=== PATIENT | male | born 1960 | race Caucasian/White ===

== ENCOUNTER 2025-03-23 08:51 | Outpatient (AMB) | payer MEDICAID, SELFPAY ==
--- NOTE | 2025-03-23 09:02 | PD.ORTHCLVIS ---
Vital signs 03/23/25 09:03 Height 1.85 m Height Method Stated Weight 99.535 kg Weight Measurement Method Standing Scale BMI 28.9 BP 163/134 H Blood Pressure Source Automatic Cuff Blood Pressure Location Left Upper Arm Position Sitting Respiration 19 Pulse 66 Pulse Source Monitor Temp 97.6 F Temp Source Temporal Artery Scan Pulse Oximetry (%) 99 Oxygen Delivery Method Room Air Med/Allergies Allergies & Medications Allergies No Known Allergies Allergy (Verified 03/23/25 09:03) Medication Reconciliation ibuprofen 800 mg tablet 800 mg PO Q8H 03/23/25 [History Confirmed 03/23/25] meloxicam 7.5 mg tablet 7.5 mg PO QDAY #45 tabs 03/23/25 [Rx] methylprednisolone 4 mg tablets in a dose pack (Medrol (Tyler)) See Rx Instructions PO PER PKG DIR #21 tabs 03/23/25 [Rx] Exam Exam Patient is in no acute distress and is cooperative with the examination today. Breathing is nonlabored. In no respiratory distress. Patient has no paraspinal tenderness. The gait of the patient is nonantalgic Bilateral extremities were evaluated and demonstrates sensation intact to light touch. Palpable pedal pulses are present. No significant edema is present. Bilateral knees were examined and the patient has full strength and range of motion.. The right hip was examined. Patient was able to flex to 90 degrees, adduct to 30 degrees, abduct to 40 degrees, internally rotate to 20 degrees, and externally rotate to 20 degrees. Patient has a negative logroll. Stinchfield is negative. The patient is nontender diffusely to touch. The left hip was examined. Patient was able to flex to 90 degrees, adduct to 30 degrees, abduct to 40 degrees, internally rotate to 10 degrees, and externally rotate to 20 degrees. Patient has a positive logroll and Stinchfield X-rays of the left hip and MRI of the left hip from [place] [facility] demonstrate significant joint space narrowing and complete obliteration of the femoral acetabular joint space. There is significant degenerative changes on the MRI as well Assessment and Plan Problem List (1) Arthritis of left hip: Status: Acute Plan: Patient is a 64-year-old male with significant left hip arthritis as well as symptoms of spinal stenosis. We discussed that I would like to get an MRI to better evaluate the spinal stenosis. We will probably end up doing a total hip replacement at some point as he has significant arthritis and complete joint space narrowing. He has difficulty putting on socks and shoes. However, he also has significant sciatica type symptoms. I would like to do a few things. I will order an x-rays of his hip and spine and knee as he is having significant symptoms. In addition, I will order a diagnostic and therapeutic hip injection with cortisone. I would like to see him back after his injection is done to see how much of the pain is coming from the hip versus spine. (2) Spinal stenosis: Status: Acute Plan DMV DISABLED PERSON PLACARD forms was given to me and was filled out for patient expires 09/23/2025 Office Procedures GNS Level of Care Nursing/Assessment Patient Status: Initial/New Patient Nursing Assessment/Reassesment: Medication Reconciliation, Update PMH in EMR and Vital Signs Coordination of Care: Complex Care and Chronic Disease 1-5, Education Complex Pt/Fam, Consent,records obtained, informed consent, 1 Ins Authorization, Lab and Imaging orders, Results/Orders obtained and Staff clarify orders New Patient Charge New Patient Point Assignment: 1124 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 ([id number]) MA Intake Visit Data Collection New Patient or Established: New Patient (never been to [facility]) Reason for Visit:: LEFT HIP PAIN Seen by Clinical Staff ONLY (RN/MA): No PCP or OBGYN visit in last 3 months: Yes Hx Now: No Do You Feel Safe at Home: Yes Authorities Contacted: N/A Questionairres Past Medical History Past Medical History Have you ever been diagnosed with any of the following: Neurological Problems Cerebrovascular Accident (CVA): No Transient Ischemic Attacks (TIA): No Dementia: No Alzheimer's Disease: No Parkinson's Disease: No Brain Tumor: No Meningitis: No Seizures: No Epilepsy: No Multiple Sclerosis: No Cerebral Palsy: No Amyotrophic Lateral Sclerosis (ALS/Valencia Gehrig's): No Guillain-[place] Syndrome: No Spina Bifida: No Paralysis: No Peripheral Neuropathy: No Esparza's Palsy: No Subdural Hematoma: No Migraine: No Head Trauma: No Spinal Cord Injury: No Traumatic Brain Injury: No Respiratory Problems Smoking: Yes (MARIJUANA) Subjective Visit Visit for: new patient, hip (LEFT) and MRI (RESULTS) Immunization / Flu Flu Vaccine in the Last 12 Months: No Flu Vaccine Exclusion Criteria: No Exclusion Criteria History of Present Illness Chief complaint: LEFT HIP PAIN Date of injury / onset of symptoms: 4 YEARS Patient is a 64-year-old male with a longstanding history of back and hip issues. He has a history of sciatica. He has not seen anyone recently. He also has significant pain on his side and buttocks. He was told he had significant arthritis in his left hip. He is significant difficulty putting on socks and shoes on the left. The patient has significant difficulty sitting down or lying down. He prefers to be standing up because of the pain. He has constant pain on groin area when still for too long. He has a positive shopping cart sign Personal History Occupation: RETIRED Hobbies: USED TO PLAY SPORTS Pain Pain level (0-10): 10 Pain duration: WHEN SITTING Pain location: groin, inside (medial), outside (lateral), anterior and other (specify) (CONSTANT GROIN PAIN WHEN STILL FOR TOO LONG) Pain quality: sharp, dull and aching Pain timing: night, increases with activity, stairs and other (specify) Ambulatory data Ambulatory device: none Treatments Number of previous injections: 0 Improvement with previous injections: No Number of Physical Therapy sessions: 0 Improvement with PT: No Improvement with NSAIDS: no (IBUPROFEN) Review of Systems Review of Systems: All systems negative unless otherwise noted in HPI.
[2025-03-23 09:03] VITALS: BP 163/134; PULSE 66; RESP 19; TEMP 36.4; O2SAT 99; BMI 28.9
--- NOTE | 2025-03-23 09:14 | XR_ITS ---
Examination: Lumbar spine 3 views Technique one AP lateral coned lateral lower lumbar spine 3 views Date and time: March 23, 2025 0945 hours INDICATIONS: Lower back pain 20 years FINDINGS: Adequate alignment lumbar vertebral bodies on the lateral view. No lumbar fracture. Moderate lumbar spondylosis. Diffuse lumbar disc narrowing, advanced L4-L5, L5-S1 IMPRESSION: Advanced degenerative disc disease L4-L5, L5-S1
--- NOTE | 2025-03-23 09:15 | XR_ITS ---
Examination: Bilateral knees single view Left knee PA lateral axial 3 views TECHNIQUE: Bilateral AP knees standing single view Left knee PA standing flexion, standing lateral, axial left knee 3 views total 4 views Date and time: March 23, 2025 0932 hours INDICATIONS: Left knee pain one year. FINDINGS: Mild to moderate narrowing medial joint space right knee Moderate to advanced narrowing medial joint space left knee Mild osteoarthritis left patellofemoral joint No fracture IMPRESSION: Moderate to advanced narrowing medial joint space left knee
--- NOTE | 2025-03-23 09:15 | XR_ITS ---
Examination:Left hip AP, lateral, AP pelvis 3 views Technique: Hip AP lateral, AP pelvis, 3 views Exam date and time:March 23, 2025 0932 hours INDICATIONS: Left hip pain beginning one year ago. FINDINGS: Severe left hip osteoarthritis, severe joint space narrowing [id number] No acute fracture Sclerosis involving the femoral head, clinical correlation advised Moderate narrowing right hip joint IMPRESSION: Severe left hip osteoarthritis.
== END 2025-03-23 09:24 | disposition home or self-care (01) ==
LOC: HODSRG 08:51
PROVIDERS: PCP Physician Assistant; Referring Provider Physician Assistant; Supervising Provider Orthopaedic Surgery Adult Reconstructive Orthopaedic Surgery; Visit Provider Orthopaedic Surgery Adult Reconstructive Orthopaedic Surgery
DX: M16.12 Unilateral primary osteoarthritis, left hip (principal); M51.369 Other intervertebral disc degeneration, lumbar region without mention of lumbar back pain or lower extremity pain; M25.862 Other specified joint disorders, left knee
CPT/HCPCS: 72100; 73502; 73564; 99204; G0463

== ENCOUNTER → 2025-04-05 | Outpatient (CLI) | payer MEDICAID, SELFPAY ==
--- NOTE | 2025-04-05 13:00 | XR_ITS ---
Examination: Steroid injection left hip joint with imaging guidance Fluoroscopy AP left hip 2 views INDICATIONS: Diagnosis unilateral primary osteoarthritis left hip, left hip pain years. Exam date and time: April 05, 2025 1303 hours Informed consent provided. Technique: A timeout was completed verifying correct patient, procedure, site, positioning. The patient was placed in supine position appropriate for the steroid injection The patient's site was prepped and draped in sterile fashion 5 cc 1% lidocaine administered locally for anesthesia. Sterile drape applied, maximum barrier sterile technique. Utilizing fluoroscopic guidance, 23-gauge needle placed in the left hip joint 1 cc Kenalog 40 in 5 cc 0.25% Marcaine introduced into the left hip joint The patient was in satisfactory and stable condition on completion of the procedure Attending radiologist was present for the entire procedure Estimated blood loss 0 cc. Impression: Successful steroid injection left hip joint with imaging guidance Fluoroscopy 0.1 minute radiation dose 2.02 milligray 2 spot fluoroscopic abdomen films .
[2025-04-05] MEDS: BUPIVACAINE MPF 0.25% 30 ML VIAL EPID (13:45)
[2025-04-05] MEDS: TRIAMCINOLONE ACET INJ 40 MG/ML VIAL IM (14:10)
== END | disposition home or self-care (01) ==
LOC: SIRX 12:41
PROVIDERS: PCP Family Medicine; Referring Provider Orthopaedic Surgery Adult Reconstructive Orthopaedic Surgery; Visit Provider Orthopaedic Surgery Adult Reconstructive Orthopaedic Surgery
DX: M16.12 Unilateral primary osteoarthritis, left hip (principal); M48.00 Spinal stenosis, site unspecified
CPT/HCPCS: 20610; 77002; J3301; J3490; J0665

== ENCOUNTER → 2025-04-25 | Outpatient (CLI) | payer MEDICAID, SELFPAY ==
--- NOTE | 2025-04-25 11:00 | XR_ITS ---
Examination: CT lumbar spine, without contrast. 2-D sagittal reconstructions. 2-D coronal reconstructions. 3-D reconstructions. Date and time of exam:April 25, 2025 1117 hours INDICATIONS: Lower back pain 15 years CTDI: vol (mGy):31.8 DLP: (mGycm):1029 Technique: Multiple 1.25 mm axial sections of the lumbar spine without intravenous contrast have been obtained. 2-D sagittal and coronal reconstructions have been obtained. 3-D reconstructions have been obtained. Low dose protocols were performed. One or more of the following dose reduction techniques were used; automated exposure control, adjustment of the mA and/or KV according to patient size, use of iterative reconstruction technique. Findings: Prominent osteopenia. Satisfactory alignment lumbar vertebral bodies on the lateral view. No lumbar fracture. Mild lumbar spondylosis. Moderate disc narrowing L4-L5, advanced disc narrowing L5-S1 No spondylolisthesis Lumbar pedicles, laminae, transverse and posterior spinous processes are intact L5-S1 3 mm central lumbar disc bulge with moderate left neural foraminal stenosis and mild left L5 ganglionic compression L4-L5 4.5 mm central lumbar disc bulge L3-L4 no disc protrusion L2-L3 no disc protrusion L1-L2 no disc protrusion IMPRESSION: Moderate degenerative disc disease L4-L5 Advanced degenerative disc disease L5-S1 L5-S1 3 mm central lumbar disc bulge, moderate left neural foraminal stenosis, mild left L5 ganglionic compression L4-L5 4.5 mm central lumbar disc bulge
== END | disposition home or self-care (01) ==
PROVIDERS: PCP Orthopaedic Surgery Adult Reconstructive Orthopaedic Surgery; Referring Provider Orthopaedic Surgery Adult Reconstructive Orthopaedic Surgery; Visit Provider Orthopaedic Surgery Adult Reconstructive Orthopaedic Surgery
DX: M51.360 Other intervertebral disc degeneration, lumbar region with discogenic back pain only (principal); M51.370 Other intervertebral disc degeneration, lumbosacral region with discogenic back pain only; M48.07 Spinal stenosis, lumbosacral region; G95.20 Unspecified cord compression
CPT/HCPCS: 72131

== ENCOUNTER → 2025-04-26 | Outpatient (CLI) | payer MEDICAID, SELFPAY ==
--- NOTE | 2025-04-26 17:00 | XR_ITS ---
Examination: MRI left hip without intravenous contrast. Date and time of exam: April 26, 2025, 1926 hrs. Indications: Left hip pain beginning 40 years ago, worse the last year Technique: Multiple MRI images of the left hip have been obtained T1 weighted coronal sections, TR 500, TE 12 Proton density coronal fat saturated images, TR 3000, TE 71 T2-weighted coronal images, 5850, TE 104 T1-weighted axial images, TR 521, TE 12 T2-weighted axial fat suppressed images, TR 5730, TE 103. Findings: Advanced left hip osteoarthritis, marked joint space narrowing Serpiginous abnormal signal in the femoral head on the left, avascular necrosis Moderate to severe narrowing right hip joint, no avascular necrosis Bones of the pelvis intact Mild prostatomegaly Urinary bladder intact Fraying and irregularity anterior superior left hip labral margins Impression: Advanced left hip osteoarthritis Avascular necrosis left femoral head Fraying and irregularity anterior superior left hip labral margins
--- NOTE | 2025-04-26 17:00 | XR_ITS ---
Examination: MRI lumbar spine without contrast Date and time of exam: April 26, 2025, 1806 hrs. Indications: Low back pain radiating to the left hip beginning one year ago Technique: Multiple MRI axial and sagittal sections lumbar spine. Sagittal T2-weighted images, TR 3500, TE 118 T1 weighted transverse sections, TR 688 T8.5, T2-weighted sagittal sections T1 weighted sagittal sections TR 621, TE 30 T2 axial sections, TR 4, 190, TE 84. Findings: Adequate alignment lumbar vertebral bodies No lumbar fractures. Moderate to advanced disc narrowing L4-L5, L5-S1 Diffuse lumbar disc desiccation No spondylolisthesis L5-S1 3 mm central lumbar disc bulge contiguous with the right and left S1 nerve roots L4-L5 moderate overall spinal stenosis, axial image 5, 5 mm central lumbar disc bulge indenting the ventral margin thecal sac More cephalad levels unremarkable for focal disc protrusion Impression: Moderate to advanced degenerative disc disease L4-L5, L5-S1 L5-S1 3 mm central lumbar disc bulge contiguous with the right and left S1 nerve roots L4-L5 moderate overall spinal stenosis, including 5 mm central lumbar disc bulge
== END | disposition home or self-care (01) ==
PROVIDERS: PCP Physician Assistant; Referring Provider Orthopaedic Surgery Adult Reconstructive Orthopaedic Surgery; Visit Provider Orthopaedic Surgery Adult Reconstructive Orthopaedic Surgery
DX: M16.12 Unilateral primary osteoarthritis, left hip (principal); M87.852 Other osteonecrosis, left femur; M25.852 Other specified joint disorders, left hip; M51.370 Other intervertebral disc degeneration, lumbosacral region with discogenic back pain only; M51.360 Other intervertebral disc degeneration, lumbar region with discogenic back pain only; M48.061 Spinal stenosis, lumbar region without neurogenic claudication
CPT/HCPCS: 72148; 73721

== ENCOUNTER 2025-04-27 08:15 | Outpatient (AMB) | payer MEDICAID, SELFPAY ==
[2025-04-27 08:29] VITALS: BP 159/130; PULSE 65; RESP 18; TEMP 36.4; O2SAT 99; BMI 29.5
--- NOTE | 2025-04-27 08:29 | PD.ORTHCLVIS ---
Vital signs 04/27/25 08:29 Height 1.85 m Height Method Measured Weight 100.811 kg Weight Measurement Method Standing Scale BMI 29.5 BP 159/130 H Blood Pressure Source Automatic Cuff Blood Pressure Location Left Upper Arm Position Sitting Respiration 18 Pulse 65 Pulse Source Monitor Temp 97.6 F Temp Source Temporal Artery Scan Pulse Oximetry (%) 99 Oxygen Delivery Method Room Air Med/Allergies Allergies & Medications Allergies No Known Allergies Allergy (Verified 04/27/25 08:31) Medication Reconciliation ibuprofen 800 mg tablet 800 mg PO Q8H 03/23/25 [History Confirmed 04/27/25] meloxicam 7.5 mg tablet 7.5 mg PO QDAY #45 tabs 03/23/25 [Rx Confirmed 04/27/25] methylprednisolone 4 mg tablets in a dose pack (Medrol (Tyler)) See Rx Instructions PO PER PKG DIR #21 tabs 03/23/25 [Rx Confirmed 04/27/25] Exam Exam Patient is in no acute distress and is cooperative with the examination today. Breathing is nonlabored. In no respiratory distress. Patient has no paraspinal tenderness. The gait of the patient is nonantalgic Bilateral extremities were evaluated and demonstrates sensation intact to light touch. Palpable pedal pulses are present. No significant edema is present. Bilateral knees were examined and the patient has full strength and range of motion.. The right hip was examined. Patient was able to flex to 90 degrees, adduct to 30 degrees, abduct to 40 degrees, internally rotate to 20 degrees, and externally rotate to 20 degrees. Patient has a negative logroll. Stinchfield is negative. The patient is nontender diffusely to touch. The left hip was examined. Patient was able to flex to 90 degrees, adduct to 30 degrees, abduct to 40 degrees, internally rotate to 10 degrees, and externally rotate to 20 degrees. Patient has a positive logroll and Stinchfield X-rays of the left hip and MRI of the left hip from [place] [facility] demonstrate significant joint space narrowing and complete obliteration of the femoral acetabular joint space. There is significant degenerative changes on the MRI as well RESULTS Imaging - X-ray of the hip: Bone on bone hip arthritis - MRI of the lumbar spine: 04/26/2025, Multiple disk issues at L4-5 and L5-S1 with moderate to severe stenosis Assessment and Plan Problem List (1) Arthritis of left hip: Status: Acute Plan: Patient is a 64-year-old male with significant left hip arthritis as well as symptoms of spinal stenosis. We discussed that I would like to get an MRI to better evaluate the spinal stenosis. We will probably end up doing a total hip replacement at some point as he has significant arthritis and complete joint space narrowing. He has difficulty putting on socks and shoes. However, he also has significant sciatica type symptoms. I would like to do a few things. I will order an x-rays of his hip and spine and knee as he is having significant symptoms. In addition, I will order a diagnostic and therapeutic hip injection with cortisone. I would like to see him back after his injection is done to see how much of the pain is coming from the hip versus spine. (2) Spinal stenosis: Status: Acute Plan: ASSESSMENT AND PLAN 1. Hip arthritis: Symptoms indicate a combination of severe hip arthritis and spinal stenosis. Knee pain is likely a result of the back condition, while groin discomfort is attributed to the hip issue. Mobility is compromised due to a pinched nerve in the back, leading to spinal stenosis. A comprehensive discussion was held regarding the potential benefits and risks associated with hip replacement surgery. This procedure could alleviate some of the groin pain but may not address the majority of his discomfort. The possibility of a spine injection was also discussed. Referral to a auricular detoxification specialist for further evaluation and management will be made. Consultation with the primary care physician regarding the referral for a back injection is advised. Hip replacement surgery with a robot was discussed, which can be dialed in depending on the spine surgery outcome. The hip replacement is expected to alleviate groin pain but not the majority of the pain. The patient is advised to consider spine surgery first to address the pinched nerve and stenosis. Medicare coverage starts on 07/02/2025, which will facilitate specialist consultations. 2. Spinal stenosis: MRI shows multiple disk issues at L4-5 and L5-S1 with stenosis. Knee pain is likely referred from the back. A referral to a auricular detoxification specialist for further evaluation and management will be made. Consultation with the primary care physician regarding the referral for a back injection is advised. If the auricular detoxification specialist recommends, decompression and fusion surgery may be considered. The patient is advised that the spine surgery might be more complex and painful than hip surgery, but it is necessary to address the pinched nerve causing mobility issues. Medicare coverage starts on 07/02/2025, which will facilitate specialist consultations. Plan DMV DISABLED PERSON PLACARD forms was given to me and was filled out for patient expires 09/23/2025 Office Procedures GNS Level of Care Nursing/Assessment Patient Status: Established Patient Nursing Assessment/Reassesment: Medication Reconciliation, Update PMH in EMR and Vital Signs Coordination of Care: Complex Care and Chronic Disease 1-5, Education Complex Pt/Fam, Consent,records obtained, informed consent, Results/Orders obtained and Staff clarify orders Established Patient Charge Established Patient Point Assignment: 95 Established Patient Point Charge: EP Level 3 (80-115) MA Intake Visit Data Collection New Patient or Established: Established Patient (seen at [facility] within 3 years) Reason for Visit:: CT/MRI Seen by Clinical Staff ONLY (RN/MA): No Program Arranger Required: No PCP or OBGYN visit in last 3 months: Yes Hx Now: No Do You Feel Safe at Home: Yes Authorities Contacted: N/A Questionairres Past Medical History Past Medical History Have you ever been diagnosed with any of the following: Neurological Problems Cerebrovascular Accident (CVA): No Transient Ischemic Attacks (TIA): No Dementia: No Alzheimer's Disease: No Parkinson's Disease: No Brain Tumor: No Meningitis: No Seizures: No Epilepsy: No Multiple Sclerosis: No Cerebral Palsy: No Amyotrophic Lateral Sclerosis (ALS/Valencia Gehrig's): No Guillain-[place] Syndrome: No Spina Bifida: No Paralysis: No Peripheral Neuropathy: No Esparza's Palsy: No Subdural Hematoma: No Migraine: No Head Trauma: No Spinal Cord Injury: No Traumatic Brain Injury: No Respiratory Problems Smoking: Yes (MARIJUANA) Subjective Visit Visit for: follow up visit and hip Immunization / Flu Flu Vaccine in the Last 12 Months: No Flu Vaccine Exclusion Criteria: No Exclusion Criteria History of Present Illness Chief complaint: LEFT HIP PAIN Date of injury / onset of symptoms: 4 YEARS HISTORY OF PRESENT ILLNESS IVish, have obtained verbal consent from the patient, to be recorded during this encounter which may include, but not limited to, medical history, examination, treatment plans, and relevant health information.? Patient was informed that recording will be read and reviewed by myself before inclusion in the medical chart. The patient presents for hip and back pain. He underwent a high-definition x-ray two days ago, followed by a lumbar MRI yesterday. He reports persistent pain, primarily on the outer side of his hip. He has received a hip injection, which he found beneficial. He was able to discern a difference in the pain caused by his sciatica and his hip condition. Although the pain persisted, it was of a different nature. The injection provided temporary relief. He also experiences knee pain, which occasionally radiates down the front of his leg. His mobility is limited due to his back pain. 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 Personal History Occupation: RETIRED Hobbies: USED TO PLAY SPORTS Pain Pain level (0-10): 10 Pain duration: WHEN SITTING Pain location: groin, inside (medial), outside (lateral), anterior and other (specify) (CONSTANT GROIN PAIN WHEN STILL FOR TOO LONG) Pain quality: sharp, dull and aching Pain timing: night, increases with activity, stairs and other (specify) Ambulatory data Ambulatory device: none Treatments Number of previous injections: 0 Improvement with previous injections: No Number of Physical Therapy sessions: 0 Improvement with PT: No Improvement with NSAIDS: no (IBUPROFEN) Review of Systems Review of Systems: All systems negative unless otherwise noted in HPI.
== END 2025-04-27 08:55 | disposition home or self-care (01) ==
LOC: HODSRG 08:15
PROVIDERS: Supervising Provider Orthopaedic Surgery Adult Reconstructive Orthopaedic Surgery; Visit Provider Orthopaedic Surgery Adult Reconstructive Orthopaedic Surgery
DX: M16.12 Unilateral primary osteoarthritis, left hip (principal); M48.07 Spinal stenosis, lumbosacral region
CPT/HCPCS: 99213; G0463

== ENCOUNTER 2025-06-26 14:27 | Outpatient (AMB) | payer MEDICAID, SELFPAY ==
--- NOTE | 2025-06-26 14:50 | PD.ORTHCLVIS ---
Vital signs 06/26/25 14:52 Height 1.85 m Height Method Stated Weight 102.512 kg Weight Measurement Method Standing Scale BMI 29.9 BP 150/85 H Blood Pressure Source Automatic Cuff Blood Pressure Location Left Upper Arm Position Sitting Respiration 18 Pulse 56 L Pulse Source Monitor Temp 97.8 F Temp Source Temporal Artery Scan Pulse Oximetry (%) 97 Oxygen Delivery Method Room Air Med/Allergies Allergies & Medications Allergies No Known Allergies Allergy (Verified 04/27/25 08:31) Medication Reconciliation ibuprofen 800 mg tablet 800 mg PO Q8H 03/23/25 [History Confirmed 06/26/25] meloxicam 7.5 mg tablet 7.5 mg PO QDAY #45 tabs 03/23/25 [Rx Confirmed 06/26/25] methylprednisolone 4 mg tablets in a dose pack (Medrol (Tyler)) See Rx Instructions PO PER PKG DIR #21 tabs 03/23/25 [Rx Confirmed 06/26/25] Exam Exam Patient is in no acute distress and is cooperative with the examination today. Breathing is nonlabored. In no respiratory distress. Patient has no paraspinal tenderness. The gait of the patient is nonantalgic Bilateral extremities were evaluated and demonstrates sensation intact to light touch. Palpable pedal pulses are present. No significant edema is present. Bilateral knees were examined and the patient has full strength and range of motion.. The right hip was examined. Patient was able to flex to 90 degrees, adduct to 30 degrees, abduct to 40 degrees, internally rotate to 20 degrees, and externally rotate to 20 degrees. Patient has a negative logroll. Stinchfield is negative. The patient is nontender diffusely to touch. The left hip was examined. Patient was able to flex to 90 degrees, adduct to 30 degrees, abduct to 40 degrees, internally rotate to 10 degrees, and externally rotate to 20 degrees. 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 There is significant degenerative changes on the MRI as well RESULTS Imaging - X-ray of the hip: Bone on bone hip arthritis - MRI of the lumbar spine: 04/26/2025, Multiple disk issues at L4-5 and L5-S1 with moderate to severe stenosis Assessment and Plan Problem List (1) Arthritis of left hip: Status: Acute Plan: Patient is a 64-year-old male with significant left hip arthritis as well as symptoms of spinal stenosis. He received great relief with the last hip injection. He received enough relief to want pursue surgery. We thus discussed total hip replacement as a reasonable option. He will need to wait 3 months from the last hip injection. I would plan to do this from the anterior approach. We did discuss that he also has concomitant spinal stenosis and symptoms from that may persist. We also discussed that he is at high risk for dislocation and we will do a dual mobility bearing (2) Spinal stenosis: Status: Acute Plan: The nature and purpose of the total hip replacement, alternative method(s) of treatment, the material risks involved, and the possibility of complications were fully explained to the patient. The patient does NOT have any of the following contraindications to VAUGHN: - Active infection of the hip joint, OR - Active systemic bacteremia, OR - Active skin infection or open wound at surgical site, OR - Neuropathic arthritis, OR - Severe, rapidly progressive neurological disease, OR - Severe medical condition that makes risks of the surgery outweigh the potential benefit The patient was told the most common risks and complications associated with a total hip replacement include, but are not limited to: blood clots in the leg, fatal pulmonary embolism, dislocation of the prosthesis, intraoperative and postoperative fractures of the femur or acetabulum, infection, failure of the prosthesis or grafting materials, complications from anesthesia, reactions to blood transfusions, postoperative leg length inequality, instability of the hip replacement, nerve damage or injury, vascular injury, delayed wound healing, infection, other injury or even . In addition, there are risks associated with anesthesia given during this operation. Also, the patient was told that after undergoing a total hip replacement there may still be persistent pain or disability. The patient was informed that the success of this operation in part depends upon the mechanical devices which are going to be implanted and that these devices can fail or malfunction, and may need to be repaired or replaced and there are no guarantees as to the longevity of this device or its parts and that it or its parts could fail prematurely. The patient was also notified that during the course of surgery, there may be a need to use bone graft from donors, and that any bone graft used will be carefully screened for communicable diseases, including AIDS, hepatitis, Js-Creutzfeldt, or other diseases, but despite the screening procedures, there is a small chance that they could contract one of these diseases. Finally, the patient was asked to follow completely and fully with all advice and recommended treatments, and that recovery and ultimate outcome are affected by their compliance with recommended treatment. We discussed the risks, benefits and treatment alternatives, and the patient is interested in proceeding with surgery. We will try to set this up as expeditiously as possible. Plan [employer] DIS[employer]LED PERSON [employer] forms was given to me and was filled out for patient expires 09/23/2025 Office Procedures GNS Level of Care Nursing/Assessment Patient Status: Established Patient Nursing Assessment/Reassesment: Medication Reconciliation, Update PMH in EMR and Vital Signs Coordination of Care: Complex Care and Chronic Disease 1-5, Education Complex Pt/Fam, Consent,records obtained, informed consent, Results/Orders obtained and Staff clarify orders Established Patient Charge Established Patient Point Assignment: 95 Established Patient Point Charge: EP Level 3 (80-115) MA Intake Visit Data Collection New Patient or Established: Established Patient (seen at [facility] within 3 years) Reason for Visit:: HIP PAIN Seen by Clinical Staff ONLY (RN/MA): No Airport Driver Required: No PCP or OBGYN visit in last 3 months: Yes Hx Now: No Do You Feel Safe at Home: Yes Authorities Contacted: N/A Questionairres Past Medical History Past Medical History Have you ever been diagnosed with any of the following: Neurological Problems Cerebrovascular Accident (CVA): No Transient Ischemic Attacks (TIA): No Dementia: No Alzheimer's Disease: No Parkinson's Disease: No Brain Tumor: No Meningitis: No Seizures: No Epilepsy: No Multiple Sclerosis: No Cerebral Palsy: No Amyotrophic Lateral Sclerosis (ALS/Valencia Gehrig's): No Guillain-[place] Syndrome: No Spina Bifida: No Paralysis: No Peripheral Neuropathy: No Esparza's Palsy: No Subdural Hematoma: No Migraine: No Head Trauma: No Spinal Cord Injury: No Traumatic Brain Injury: No Respiratory Problems Smoking: Yes (MARIJUANA) Subjective Visit Visit for: follow up visit and hip Immunization / Flu Flu Vaccine in the Last 12 Months: No Flu Vaccine Exclusion Criteria: No Exclusion Criteria History of Present Illness Chief complaint: LEFT HIP PAIN Date of injury / onset of symptoms: 4 YEARS HISTORY OF PRESENT ILLNESS IVish, have obtained verbal consent from the patient, to be recorded during this encounter which may include, but not limited to, medical history, examination, treatment plans, and relevant health information.? Patient was informed that recording will be read and reviewed by myself before inclusion in the medical chart. The patient presents for hip and back pain. He underwent a high-definition x-ray two days ago, followed by a lumbar MRI yesterday. He reports persistent pain, primarily on the outer side of his hip. He has received a hip injection, which he found beneficial. He was able to discern a difference in the pain caused by his sciatica and his hip condition. Although the pain persisted, it was of a different nature. The injection provided temporary relief. He also experiences knee pain, which occasionally radiates down the front of his leg. His mobility is limited due to his back pain. 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 Personal History Occupation: RETIRED Hobbies: USED TO PLAY SPORTS Pain Pain level (0-10): 10 Pain duration: WHEN SITTING Pain location: groin, inside (medial), outside (lateral), anterior and other (specify) (CONSTANT GROIN PAIN WHEN STILL FOR TOO LONG) Pain quality: sharp, dull and aching Pain timing: night, increases with activity, stairs and other (specify) Ambulatory data Ambulatory device: none Treatments Number of previous injections: 0 Improvement with previous injections: No Number of Physical Therapy sessions: 0 Improvement with PT: No Improvement with NSAIDS: no (IBUPROFEN) Review of Systems Review of Systems: All systems negative unless otherwise noted in HPI.
[2025-06-26 14:52] VITALS: BP 150/85; PULSE 56; RESP 18; TEMP 36.6; O2SAT 97; BMI 29.9
== END 2025-06-26 15:02 | disposition home or self-care (01) ==
LOC: HODSRG 14:27
PROVIDERS: PCP Physician Assistant; Referring Provider Physician Assistant; Supervising Provider Orthopaedic Surgery Adult Reconstructive Orthopaedic Surgery; Visit Provider Orthopaedic Surgery Adult Reconstructive Orthopaedic Surgery
DX: M25.552 Pain in left hip (principal); M16.12 Unilateral primary osteoarthritis, left hip; M48.00 Spinal stenosis, site unspecified
CPT/HCPCS: 99213; G0463